=== PATIENT | female | born 1930 | race Caucasian/White ===

== ENCOUNTER 2017-05-20 21:34 | Emergency (ER) | payer OTHER ==
[~2017-05-20 21:34] MED LIST: ADALAT CC30 MG PO; AMLODIPINE BESYL5 M1 PO; AMLODIPINE5 M1 PO; ANT12.5 PO; APR20I PO; ASPI-COR81 M3 PO; ASPIR-LOW81 M1; CAT0.1 PO; CATAPRES0.1 MG PO; COR6 PO; COREG12.5 MG PO; COZ50 PO; HYDROCHLOROTHIA25 MG PO; LASIX20 MG PO; LEVAQUIN750 MG PO; LOSARTAN/HCTZ PO; MECLIZINE HYD12.5 MG PO; NIT0.4 SL; OMEPRAZOLE DR20 M1 PO; VOL50 PO; ZOC20 PO; ZOCOR40 MG PO
[2017-05-20 22:20] LABS: BASOPHIL % 0.8 % (0-2); PLATELET COUNT 182 x10^3mcL (130-400); RED CELL DISTRIBUTION WIDTH 13.6 % (11.5-14.5)
[2017-05-20 22:34] LABS: CARBON DIOXIDE 25.3 mmol/L (21-32); CHLORIDE SERUM 96 mmol/L (98-107); CREATININE SERUM 0.7 mg/dL (0.6-1.0); GLUCOSE SERUM 119 mg/dL (74-106); POTASSIUM SERUM 3.8 mmol/L (3.5-5.1); SODIUM SERUM 132 mmol/L (136-145)
[2017-05-20 22:46] LABS: ALBUMIN 3.9 g/dL (3.4-5.0); ALKALINE PHOSPHATASE 71 U/L (46-116); ALT/SGPT 57 U/L (14-59); AMYLASE 105 U/L (25-115); AST/SGOT 63 U/L (15-37); BILIRUBIN TOTAL 0.57 mg/dL (0.20-1.00); CHOLESTEROL 177 mg/dL (<200); HDL CHOLESTEROL 59 mg/dL (40-60); LIPASE 128 IU/L (73-393); MAGNESIUM 1.9 mg/dL (1.8-2.4); T4(THYROXINE) 10.8 ug/dL (4.7-13.3); TOTAL PROTEIN, SERUM 7.1 g/dL (6.4-8.2)
[2017-05-20 23:23] LABS: UA SPECIFIC GRAVITY <=1.005 (1.005-1.035); microscopic required? YES; urine erythrocyte NEGATIVE (NEGATIVE)
[2017-05-20 23:32] LABS: AMPHETAMINE QUAL UR NONE DETECTED (NEG <=1000)
[2017-05-21 00:21] VITALS: BP 140/90
== END 2017-05-21 00:21 | disposition home or self-care (01) ==
LOC: ED 21:34
PROVIDERS: Emergency Medicine
DX: R51 Headache (principal); I10 Essential (primary) hypertension; E78.00 Pure hypercholesterolemia, unspecified
CPT/HCPCS: 82962; 83880; J1940

== ENCOUNTER 2017-07-08 21:29 | Emergency (ER) | payer OTHER ==
[~2017-07-08] VITALS: Ht 157.5 cm; Wt 60.8 kg
[2017-07-08] MEDS ORDERED: OMEPRAZOLE40 M1 PO (22:29)
[2017-07-08] MEDS ORDERED: MECLIZINE HYDRO25 M1 PO (22:29)
[2017-07-08] MEDS ORDERED: AMLODIPINE BES2.5 M1 PO (22:30)
[2017-07-08] MEDS ORDERED: SIMVASTATIN20 M1 PO (22:30)
[2017-07-08 23:10] LABS: PLATELET COUNT 163 x10^3mcL (130-400); RED CELL DISTRIBUTION WIDTH 13.7 % (11.5-14.5)
[2017-07-08 23:11] LABS: BASOPHIL % 2.4 % (0-2)
[2017-07-08 23:17] LABS: CARBON DIOXIDE 27.5 mmol/L (21-32); CHLORIDE SERUM 99 mmol/L (98-107); CREATININE SERUM 0.6 mg/dL (0.6-1.0); GLUCOSE SERUM 106 mg/dL (74-106); POTASSIUM SERUM 3.5 mmol/L (3.5-5.1); SODIUM SERUM 136 mmol/L (136-145)
[2017-07-08 23:22] LABS: ALBUMIN 4.1 g/dL (3.4-5.0); ALKALINE PHOSPHATASE 62 U/L (46-116); ALT/SGPT 54 U/L (14-59); AST/SGOT 50 U/L (15-37); BILIRUBIN TOTAL 0.5 mg/dL (0.20-1.00); TOTAL PROTEIN, SERUM 7.8 g/dL (6.4-8.2)
[2017-07-09 00:51] VITALS: BP 135/76
== END 2017-07-09 00:51 | disposition home or self-care (01) ==
LOC: ED 21:29
PROVIDERS: Emergency Medicine
DX: H81.10 Benign paroxysmal vertigo, unspecified ear (principal); I10 Essential (primary) hypertension; K21.9 Gastro-esophageal reflux disease without esophagitis; E78.00 Pure hypercholesterolemia, unspecified; Z90.710 Acquired absence of both cervix and uterus
CPT/HCPCS: 83880; J1885; J3490; J8597

== ENCOUNTER 2017-07-12 08:40 | Emergency (ER) | payer OTHER ==
[~2017-07-12] VITALS: Ht 152.4 cm; Wt 59.9 kg
[~2017-07-12 08:40] MED LIST changes: +AMLODIPINE BES2.5 M1 PO; +MECLIZINE HYDRO25 M1 PO; +OMEPRAZOLE40 M1 PO; +SIMVASTATIN20 M1 PO
[2017-07-12 10:50] LABS: PLATELET COUNT 182 x10^3mcL (130-400); RED CELL DISTRIBUTION WIDTH 13.2 % (11.5-14.5)
[2017-07-12 10:57] LABS: BASOPHIL % 2.2 % (0-2)
[2017-07-12 11:04] LABS: AMYLASE 82 U/L (25-115); LIPASE 126 IU/L (73-393)
[2017-07-12 11:10] LABS: microscopic required? NO
[2017-07-12 11:27] LABS: urine erythrocyte NEGATIVE (NEGATIVE)
[2017-07-12 13:25] VITALS: BP 167/80
== END 2017-07-12 13:26 | disposition home or self-care (01) ==
LOC: ED 08:40
PROVIDERS: Emergency Medicine
DX: K57.90 Diverticulosis of intestine, part unspecified, without perforation or abscess without bleeding (principal); F41.9 Anxiety disorder, unspecified; I10 Essential (primary) hypertension; E78.00 Pure hypercholesterolemia, unspecified; Z90.49 Acquired absence of other specified parts of digestive tract; Z90.710 Acquired absence of both cervix and uterus
CPT/HCPCS: 36600; 83880

== ENCOUNTER 2018-05-03 12:37 | Emergency (ER) | payer OTHER, MEDICAID ==
[~2018-05-03] VITALS: Ht 152.4 cm; Wt 60.8 kg
[2018-05-03 12:52] VITALS: Ht 152.4 cm; Wt 60.8 kg
[2018-05-03 13:44] LABS: PLATELET COUNT 194 x10^3mcL (130-400); RED CELL DISTRIBUTION WIDTH 13.5 % (11.5-14.5)
[2018-05-03 13:45] LABS: BASOPHIL % 2.3 % (0-2)
[2018-05-03 13:49] LABS: microscopic required? YES; urine erythrocyte NEGATIVE (NEGATIVE)
[2018-05-03 13:58] LABS: CALCIUM 8.5 mg/dL (8.5-10.1); CARBON DIOXIDE 23.1 mmol/L (21-32); CHLORIDE SERUM 95 mmol/L (98-107); CREATININE SERUM 0.8 mg/dL (0.6-1.0); GLUCOSE SERUM 124 mg/dL (74-106); SODIUM SERUM 128 mmol/L (136-145)
[2018-05-03 14:03] LABS: ALKALINE PHOSPHATASE 79 U/L (46-116); ALT/SGPT 54 U/L (14-59); AST/SGOT 51 U/L (15-37); BILIRUBIN TOTAL 0.6 mg/dL (0.20-1.00); CHOLESTEROL 183 mg/dL (<200); MAGNESIUM 1.9 mg/dL (1.8-2.4); TOTAL PROTEIN, SERUM 7.1 g/dL (6.4-8.2)
[2018-05-03 14:04] LABS: HDL CHOLESTEROL 69 mg/dL (40-60)
[2018-05-03 15:23] VITALS: BP 167/74
== END 2018-05-03 15:18 | disposition home or self-care (01) ==
LOC: ED 12:37
PROVIDERS: Emergency Medicine
DX: R51 Headache (principal); R42 Dizziness and giddiness; I10 Essential (primary) hypertension; E78.00 Pure hypercholesterolemia, unspecified; Z90.710 Acquired absence of both cervix and uterus
CPT/HCPCS: 36415; 83880; J0696; Q0092

== ENCOUNTER 2018-05-05 13:28 | Emergency (ER) | payer OTHER, MEDICAID ==
[~2018-05-05] VITALS: Ht 147.3 cm; Wt 60.3 kg
[2018-05-05 13:31] VITALS: Ht 147.3 cm; Wt 60.3 kg
[2018-05-05 14:24] LABS: BASOPHIL % 0.4 % (0-2); PLATELET COUNT 194 x10^3mcL (130-400); RED CELL DISTRIBUTION WIDTH 13.4 % (11.5-14.5)
[2018-05-05 14:46] LABS: CALCIUM 8.6 mg/dL (8.5-10.1); CARBON DIOXIDE 23.5 mmol/L (21-32); CHLORIDE SERUM 96 mmol/L (98-107); CREATININE SERUM 0.8 mg/dL (0.6-1.0); GLUCOSE SERUM 98 mg/dL (74-106); SODIUM SERUM 131 mmol/L (136-145)
[2018-05-05 14:47] LABS: ALKALINE PHOSPHATASE 77 U/L (46-116); ALT/SGPT 65 U/L (14-59); AST/SGOT 77 U/L (15-37); BILIRUBIN TOTAL 0.6 mg/dL (0.20-1.00); TOTAL PROTEIN, SERUM 7.1 g/dL (6.4-8.2)
[2018-05-05 15:08] VITALS: BP 158/84
== END 2018-05-05 15:08 | disposition home or self-care (01) ==
LOC: ED 13:28
PROVIDERS: Emergency Medicine
DX: I16.0 Hypertensive urgency (principal); R42 Dizziness and giddiness; E78.00 Pure hypercholesterolemia, unspecified; Z90.710 Acquired absence of both cervix and uterus
CPT/HCPCS: 36415; 83880

== ENCOUNTER 2018-05-20 16:28 | Emergency (ER) | payer OTHER, MEDICAID ==
[~2018-05-20] VITALS: Ht 152.4 cm; Wt 61.2 kg
[2018-05-20 17:03] VITALS: Ht 152.4 cm; Wt 61.2 kg
[2018-05-20 20:51] LABS: PLATELET COUNT 200 x10^3mcL (130-400); RED CELL DISTRIBUTION WIDTH 13.5 % (11.5-14.5)
[2018-05-20 20:59] LABS: CALCIUM 8.9 mg/dL (8.5-10.1); CARBON DIOXIDE 25.1 mmol/L (21-32); CHLORIDE SERUM 93 mmol/L (98-107); CREATININE SERUM 0.6 mg/dL (0.6-1.0); GLUCOSE SERUM 107 mg/dL (74-106); POTASSIUM SERUM 4.1 mmol/L (3.5-5.1); SODIUM SERUM 128 mmol/L (136-145)
[2018-05-20 21:04] LABS: ALBUMIN 4.1 g/dL (3.4-5.0); ALKALINE PHOSPHATASE 77 U/L (46-116); ALT/SGPT 85 U/L (14-59); AST/SGOT 88 U/L (15-37); BILIRUBIN TOTAL 0.8 mg/dL (0.20-1.00); TOTAL PROTEIN, SERUM 7.3 g/dL (6.4-8.2)
[2018-05-20 21:30] LABS: microscopic required? YES; urine erythrocyte NEGATIVE (NEGATIVE)
[2018-05-20 21:39] VITALS: BP 133/74
== END 2018-05-20 21:39 | disposition home or self-care (01) ==
LOC: ED 16:28
PROVIDERS: Emergency Medicine
DX: G44.209 Tension-type headache, unspecified, not intractable (principal); I10 Essential (primary) hypertension; E78.00 Pure hypercholesterolemia, unspecified; E87.1 Hypo-osmolality and hyponatremia; Z90.710 Acquired absence of both cervix and uterus
CPT/HCPCS: 36415

== ENCOUNTER 2018-06-06 21:51 | Emergency (ER) | payer OTHER, MEDICAID ==
[~2018-06-06] VITALS: Ht 152.4 cm; Wt 61.0 kg
[2018-06-06 22:23] VITALS: Ht 152.4 cm; Wt 61.0 kg
[2018-06-07] VITALS: BP 180/94
== END 2018-06-07 | disposition home or self-care (01) ==
LOC: ED 21:51
DX: I10 Essential (primary) hypertension (principal); R42 Dizziness and giddiness; E78.00 Pure hypercholesterolemia, unspecified; Z90.710 Acquired absence of both cervix and uterus

== ENCOUNTER 2018-09-15 16:26 | Emergency (ER) | payer OTHER, MEDICAID ==
[~2018-09-15] VITALS: Ht 149.9 cm; Wt 60.3 kg
[2018-09-15 16:38] VITALS: BP 129/76
== END 2018-09-15 18:17 | disposition home or self-care (01) ==
LOC: ED 16:26
DX: K59.00 Constipation, unspecified (principal); K21.9 Gastro-esophageal reflux disease without esophagitis; I10 Essential (primary) hypertension; E78.00 Pure hypercholesterolemia, unspecified; Z90.710 Acquired absence of both cervix and uterus
CPT/HCPCS: Q0092

== ENCOUNTER 2019-05-13 23:40 | Inpatient (IN) | payer OTHER, MEDICAID ==
[~2019-05-13] VITALS: Ht 157.5 cm; Wt 57.2 kg
[~2019-05-13 23:40] MED LIST changes: -ASPI-COR81 M3 PO; +ASPIR 8181 MG PO
[2019-05-13 23:47] VITALS: Ht 157.5 cm; Wt 57.2 kg
[2019-05-14] VITALS (7 sets, daily range): BP systolic 135–163; BP diastolic 59–85
--- NOTE | 2019-05-14 00:12 | NUR ---
PATIENT WAS BROUGHT BACK FROM TRIAGE WITH COMPLAIN TOF DIZZINESS, REPORTS SEEN BY PMD ON THURSDAY AND DX VERTIGO.
[2019-05-14 00:22] LABS: BASOPHIL % 0.8 % (0-2); PLATELET COUNT 255 x10^3mcL (130-400); RED CELL DISTRIBUTION WIDTH 13.3 % (11.5-14.5)
[2019-05-14 00:38] LABS: ALBUMIN 3.8 g/dL (3.4-5.0); ALKALINE PHOSPHATASE 55 U/L (46-116); ALT/SGPT 47 U/L (14-59); AST/SGOT 41 U/L (15-37); BILIRUBIN TOTAL 0.6 mg/dL (0.20-1.00); CALCIUM 9.1 mg/dL (8.5-10.1); CARBON DIOXIDE 25.9 mmol/L (21-32); CHLORIDE SERUM 80 mmol/L (98-107); CREATININE SERUM 0.8 mg/dL (0.6-1.0); GLUCOSE SERUM 117 mg/dL (74-106); POTASSIUM SERUM 3.2 mmol/L (3.5-5.1); TOTAL PROTEIN, SERUM 6.6 g/dL (6.4-8.2)
[2019-05-14 00:41] LABS: SODIUM SERUM 119 mmol/L (136-145)
[2019-05-14] MEDS ORDERED: PRO30 PO (00:50)
[2019-05-14] MEDS ORDERED: HYDROCHLOROTH12.5 M2 PO (00:50)
[2019-05-14] MEDS ORDERED: PANTOPRAZOLE SO40 M1 (00:51)
[2019-05-14] MEDS ORDERED: TRAZODONE50 M1 PO (00:51)
[2019-05-14] MEDS ORDERED: LEXAPRO20 MG PO (00:51)
[2019-05-14] MEDS ORDERED: IBUPROFEN400 MG PO (00:52)
[2019-05-14] MEDS ORDERED: POT (00:53)
[2019-05-14] MEDS ORDERED: [UNRECOGNIZED DRUG - OTHER] (00:54)
--- NOTE | 2019-05-14 00:55 | NUR ---
SALINE LOCK INSERTED. FLUID ID INFUSING, PATIENT MEDICATED WITH REGLAN AND TORADOL.
--- NOTE | 2019-05-14 01:04 | NUR ---
PT MEDICATED PER ORDER. PT VERBALIZED UNDERSTANING OF MEDICATION TEACHING. SEE EMAR FOR DETAILS.
--- NOTE | 2019-05-14 01:34 | NUR ---
PT MEDICATED PER ORDER PT VERBALIZED UNDERSTANDING OF MEDICATION TEACH. SEE EMAR FOR DETAILS.
--- NOTE | 2019-05-14 01:53 | NUR ---
PATIENT AMBULATED TO THE BATHROOM , WALK WITH SINTERING PLANT SUPERVISOR.
--- NOTE | 2019-05-14 02:14 | NUR ---
ADMISSION ROOM OBTAIN, REPORT WAS GIVEN TO YAMILKA.
--- NOTE | 2019-05-14 02:34 | NUR ---
IV SITE IS INFILTRATED. SANE RESITED ON THE RIGHT FOREARM
--- NOTE | 2019-05-14 03:05 | NUR ---
PT RECEIVED FROM ED VIA GURNEY ACCOMPANIED BY ER NURSE, TECH, AND PT'S NIECE. PT A/O X 3-4, PT PROVIDED INCORRECT BIRTHDAY, ABLE TO MAKE NEEDS KNOWN, NO FACIAL DROOP NOTED. PT C/O 8/10 HEADACHE AND DIZZINESS, WILL MEDICATE WITH PRN PAIN MED. SEIZURE PRECAUTIONS IN PLACE FOR LOW NA. TELE #15, NSR, PT DENIES ANY CP/PRESSURE. PULSES PALPABLE, TRACE EDEMA TO BLE. BREATHING IS EVEN AND UNLABORED ON RA, LUNG SOUNDS CTA, NO RESP DISTRESS NOTED. ABD SOFT AND NONDISTENDED, DENIES N/V. VOIDS FREELY, PT MAY HAVE EPISODES OF URINARY INCONTINENCE. GENERALIZED WEAKNESS, PT ABLE TO REPOSITION INDEPENDENTLY. PT IS AMBULATORY AT BASEL[facility]; PER PT'S NIECE-QUINTON, THEY RECENTLY HAD TO ORDER A CANE AND FWW FOR HER. SKIN IS WARM AND DRY, INTACT. ORIENTED PT TO ROOM AND CALL LIGHT. BED IN LOWEST SETTING, SIDE RAILS UP X2, CALL LIGHT WITHIN REACH. WILL CONT TO MONITOR.
--- NOTE | 2019-05-14 03:12 | NUR ---
PT TRANSFERRED TO TELE FLOOR BY NURSE AND EMT. NO S/S OF DISTRESS. RESP E/U. PT CONNECTED TO MONITOR DURING TRANSFER. RN AT BEDSIDE TO ASSUME CARE OF PT. IV SITE PATENT. RN AWARE OF MEDICATIONS STILL TRANSFUSING.
--- NOTE | 2019-05-14 04:08 | NUR ---
PT C/O 06/04 HEADACHE, PRN TYLENOL GIVEN ORDERED. NO ACUTE DISTRESS NOTED. CALL LIGHT WITHIN REACH. WILL CONT TO MONITOR.
--- NOTE | 2019-05-14 06:23 | NUR ---
RECEIVED CALL FROM DR DE LUNA AND UPDATED DR REGARDING PT'S STATUS. PER DR DE LUNA, STOP 3% NS INFUSION FROM ED AT THIS TIME. PT SL TO RFA, PATENT AND INTACT, SITE WNL. ORDERS RECEIVED. WILL UPDATE WITH LAB RESULTS.
--- NOTE | 2019-05-14 07:04 | NUR ---
RECEIVED REPORT FROM YAMILKA LAGOS. PATIENT RESTING COMFORTABLY IN BED WITH SEIZURE PRECAUTIONS IN PLACE. SALINE LOCK TO RFA IS PATENT AND INTACT. NO REDNESS OR PAIN. PT ON ROOM AIR. NO C/O SOB AND NO DISTRESS NOTED. PT C/O HEADACHE 5/10 BUT DECLINES PAIN MEDICATION FOR NOW. TELE # [address] PATIENT DENIES CHEST PAIN. ALL QUESTIONS AND CONCERNS ADDRESSED.
--- NOTE | 2019-05-14 07:05 | NUR ---
CALLED LAB FOR PT'S LAB DRAW, PER ADHESIVE BANDAGE MAKING OPERATOR, "SOMEONE IS ALREADY ON THE WAY." WILL AWAIT RESULTS.
--- NOTE | 2019-05-14 07:32 | NUR ---
PT SLEPT AT INTERVALS THROUGHOUT THE EVENING. SEIZURE PRECAUTIONS MAINTAINED. BREATHING IS EVEN AND UNLABORED, NO RESP DISTRESS NOTED. PT DENIES HAVING ANY PAIN AT THIS TIME. SL TO RFA, PATENT AND INTACT, SITE WNL. NO ACUTE CHANGES ENCOUNTERED DURING SHIFT. ALL NEEDS MET AND ANTICIPATED. PT WAS COMPLIANT WITH NURSING CARE. CALL LIGHT WITHIN REACH. CONTINUITY OF CARE ENDORSED TO LOIS RN. ALL QUESTIONS AND CONCERNS ADDRESSED.
[2019-05-14 07:39] LABS: OSMOLALITY SERUM 250 mOsm/kg (278-298)
[2019-05-14 07:53] LABS: CALCIUM 9.2 mg/dL (8.5-10.1); CARBON DIOXIDE 26.4 mmol/L (21-32); CHLORIDE SERUM 87 mmol/L (98-107); CREATININE SERUM 0.7 mg/dL (0.6-1.0); GLUCOSE SERUM 110 mg/dL (74-106); POTASSIUM SERUM 4.1 mmol/L (3.5-5.1)
[2019-05-14 07:55] LABS: SODIUM SERUM 124 mmol/L (136-145)
--- NOTE | 2019-05-14 08:03 | NUR ---
SPOKE WITH DR DE LUNA TO NOTIFY OF 0700 BMP NA 124, K 4.1, SERUM OSMOL 250. DR DE LUNA ORDERED REGULAR DIET TODAY OLNY WITH ADDED ENSURE, HOLD FLUIDS FOR NOW AND CALL BACK WITH 1000 LABS AND URINE OSMOL RESULTS.
--- NOTE | 2019-05-14 08:43 | NUR ---
MARIAM IN TO SEE PATIENT AND DISCUSS PLAN OF CAR. DR INSTRUCTED TO DRINK WATER BUT NOT IN EXCESS AND INFORMED THAT WE WILL BE MONITORING HER LABS. ALSO DISCUSSED AMBULATION AND ASSISTIVE DEVICES AND PT EVAL.
--- NOTE | 2019-05-14 08:57 | NUR ---
PHYYSICAL THERAPY IN TO SEE AND ASSESS PATIENT.
[2019-05-14 10:22] LABS: CALCIUM 8.6 mg/dL (8.5-10.1); CARBON DIOXIDE 23.9 mmol/L (21-32); CHLORIDE SERUM 89 mmol/L (98-107); CREATININE SERUM 0.7 mg/dL (0.6-1.0); GLUCOSE SERUM 99 mg/dL (74-106); POTASSIUM SERUM 3.8 mmol/L (3.5-5.1)
[2019-05-14 10:25] LABS: SODIUM SERUM 122 mmol/L (136-145)
--- NOTE | 2019-05-14 10:35 | NUR ---
NOTIFIED DR DE LUNA OF [address] LABS [address] DE LUNA ORDERED NS 500ML @ 100 ML/HR. FREE WATER, COFFEE AND TEA RESTRICTION OF 800 ML/DAY, AND 1G SALT TAB X1 @ 1200.
[2019-05-14 14:11] LABS: CALCIUM 8.3 mg/dL (8.5-10.1); CARBON DIOXIDE 25.9 mmol/L (21-32); CHLORIDE SERUM 91 mmol/L (98-107); CREATININE SERUM 0.7 mg/dL (0.6-1.0); GLUCOSE SERUM 144 mg/dL (74-106); POTASSIUM SERUM 3.7 mmol/L (3.5-5.1); SODIUM SERUM 126 mmol/L (136-145)
--- NOTE | 2019-05-14 14:48 | NUR ---
NOTIFIED DR DE LUNA OF NA 126. DR ORDERED TO CONTINUE CURRENT TREATMENT. DISCUSSED THAT PT IS OK TO HAVE SMALL AMOUNTS OF FAMILY PURCHASED GATORADE. DR DE LUNA TO ARRIVE SHORTLY AND STILL WANTS TO BE NOTIFIED OF 18:00 LABS.
--- NOTE | 2019-05-14 15:44 | NUR ---
PER DR DE LUNA, HOLD PO KCL UNTIL NEXT BMP. CALL HIM AND CONSULT FOR ADMINISTRATION DEPENDING ON RESULTS.
--- NOTE | 2019-05-14 16:12 | NUR ---
CALLED PHARMACY TO REQUEST 1 HOUR EXTENSION TO WAIT FOR 18:00 LAB RESULTS. PHARMACY OK.
--- NOTE | 2019-05-14 17:31 | NUR ---
IN TO RECHECK PT BP AFTER IV HYDARLAZINE. BP IS 146/77 MEDICATION EFFECTIVE.
--- NOTE | 2019-05-14 18:49 | NUR ---
IN TO SEE PATIENT AND REASSESS PAIN. PT REPORTS PAIN IS GONE. PT IS RESTING COMFORTABLY IN BED. ALL NEEDS MET. IV TO RFA IS PATENT AND INTACT. NO REDNESS OT PAIN. TELE # [address] PT DENIES CHEST PAIN. PT ON ROOM AIR. NO C/O SOB AND NO DISTRESS NOTED. WILL ENDORSE ALL CARE TO ONCOMING NURSE.
[2019-05-14 20:19] LABS: CALCIUM 8.8 mg/dL (8.5-10.1); CARBON DIOXIDE 27.1 mmol/L (21-32); CHLORIDE SERUM 92 mmol/L (98-107); CREATININE SERUM 0.6 mg/dL (0.6-1.0); GLUCOSE SERUM 95 mg/dL (74-106); POTASSIUM SERUM 3.9 mmol/L (3.5-5.1); SODIUM SERUM 128 mmol/L (136-145)
[2019-05-14 22:27] LABS: CALCIUM 8.8 mg/dL (8.5-10.1); CARBON DIOXIDE 27.3 mmol/L (21-32); CHLORIDE SERUM 93 mmol/L (98-107); CREATININE SERUM 0.6 mg/dL (0.6-1.0); GLUCOSE SERUM 103 mg/dL (74-106); POTASSIUM SERUM 3.8 mmol/L (3.5-5.1); SODIUM SERUM 128 mmol/L (136-145)
--- NOTE | 2019-05-15 00:17 | NUR ---
PT IS RESTING IN BED WITH EYES CLOSED AT THIS TIME. NO ACUTE DISTRESS NOTED. PT HAS NO COMPLAINT OF PAIN AT THIS TIME. PT HAS BEEN ALERT AND ORIENTED X3, CALM AND COOPERATIVE WITH CARE, SAFETY AND COMFORT MEASURES MAINTAINED, BED IN LOWEST POSITION, CALL LIGHT WITHIN REACH. WILL CONTINUE TO MONITOR AT THIS TIME.
[2019-05-15 02:56] LABS: CALCIUM 9.2 mg/dL (8.5-10.1); CARBON DIOXIDE 26.4 mmol/L (21-32); CHLORIDE SERUM 95 mmol/L (98-107); CREATININE SERUM 0.7 mg/dL (0.6-1.0); GLUCOSE SERUM 89 mg/dL (74-106); POTASSIUM SERUM 3.9 mmol/L (3.5-5.1); SODIUM SERUM 130 mmol/L (136-145)
--- NOTE | 2019-05-15 05:23 | NUR ---
PT HAS RESTED IN LONG INTERVALS THROUGHOUT THE SHIFT. PT HAS BEEN CALM AND COOPERATIVE WITH CARE. PT IS ALERT AND ORIENTED X4, IV IS SALINE LOCKED AND INTACT AT THIS TIME. NO COMPLAINT OF PAIN AT THIS TIME. SAFETY AND COMFORT MEASURES MAINTAINED, BED IN LOWEST POSITION, CALL LIGHT WITHIN REACH. WILL ENDORSE CONTINUITY OF CARE TO THE ONCOMING RN.
[2019-05-15 06:26] VITALS: BP 167/72
[2019-05-15 07:13] LABS: CALCIUM 9.1 mg/dL (8.5-10.1); CARBON DIOXIDE 27.8 mmol/L (21-32); CHLORIDE SERUM 94 mmol/L (98-107); CREATININE SERUM 0.7 mg/dL (0.6-1.0); GLUCOSE SERUM 95 mg/dL (74-106); POTASSIUM SERUM 3.7 mmol/L (3.5-5.1); SODIUM SERUM 131 mmol/L (136-145)
--- NOTE | 2019-05-15 07:15 | NUR ---
RECIEVED PT SITTING UP IN BED. NO C/O PAIN, DISTRESS, OR SOB. A/O X3-4, NO MEYER OR DIZZINESS. TELE #15 CONNECTED TO PT. NO CP OR PRESSURE NOTED. PT ON STRICT FLUID RESTRICTION OF 1 LITER DAILY, NO INTAKE ON NOC SHIFT. SALINE LOCK TO RFA INTACT AND PATENT WITH NO REDNESS OR INFLAMMATION. SAFETY PRECAUTIONS IN PLACE, CALL LIGHT WITHIN REACH, WILL MONITOR.
--- NOTE | 2019-05-15 07:15 | NUR ---
RECIEVED PT SITTING UP IN CHAIR EATING BREAKFAST. NO C/O PAIN, DISTRESS, OR SOB. A/O X3-4, NO MEYER OR DIZZINESS. TELE #15 CONNECTED TO PT. NO CP OR PRESSURE NOTED. PT ON STRICT FLUID RESTRICTION OF 1 LITER DAILY, NO INTAKE ON NOC SHIFT. SALINE LOCK TO RFA INTACT AND PATENT WITH NO REDNESS OR INFLAMMATION. SAFETY PRECAUTIONS IN PLACE, CALL LIGHT WITHIN REACH, WILL MONITOR.
[2019-05-15 07:45] LABS: BASOPHIL % 0.5 % (0-2); PLATELET COUNT 237 x10^3mcL (130-400); RED CELL DISTRIBUTION WIDTH 13.7 % (11.5-14.5)
[2019-05-15 08:06] LABS: ALBUMIN 3.5 g/dL (3.4-5.0); ALKALINE PHOSPHATASE 43 U/L (46-116); ALT/SGPT 44 U/L (14-59); AST/SGOT 33 U/L (15-37); BILIRUBIN TOTAL 0.6 mg/dL (0.20-1.00); CALCIUM 9.2 mg/dL (8.5-10.1); CARBON DIOXIDE 28.9 mmol/L (21-32); CHLORIDE SERUM 94 mmol/L (98-107); CREATININE SERUM 0.7 mg/dL (0.6-1.0); GLUCOSE SERUM 91 mg/dL (74-106); SODIUM SERUM 131 mmol/L (136-145); TOTAL PROTEIN, SERUM 6.2 g/dL (6.4-8.2)
--- NOTE | 2019-05-15 08:40 | NUR ---
DR BECERRA AT BEDSIDE WITH PT AND FAMILY MEMBER. OK TO DISCHARGE TODAY PER DR BECERRA ONLY IF CLEARED BY NEPHROLOGY. POC DISCUSSED WITH PT AND FAMILY BY DR BECERRA, PT/FAMILY VERBALIZE UNDERSTANDING. FAMILY STATES PT WILL NOT HAVE A RIDE HOME UNTIL AFTER 5PM. CHARGE NOTIFIED. WILL MONITOR.
[2019-05-15 09:08] VITALS: BP 144/65
[2019-05-15 13:39] VITALS: BP 144/65
[2019-05-15 14:03] VITALS: BP 166/75
[2019-05-15 14:09] VITALS: BP 166/75
--- NOTE | 2019-05-15 14:21 | NUR ---
HYDRALAZINE PRN GIVEN TO PT FOR SBP >160 (166/75). WILL REASSESS.
--- NOTE | 2019-05-15 16:37 | NUR ---
SPOKE WITH DR DE LUNA, PT OK TO DISCHARGE TODAY AND PT IS TO STOP HYDROCHOROTHIAZIDE. NOTIFIED PT GRANDSON AT [phone]. CHARGE AWARE.
--- NOTE | 2019-05-15 17:52 | NUR ---
PT STABLE TO DISCHARGE PER MD ORDER. ALL DISCHARGE EDUCATION AND INSTRUCTIONS EXPLAINED TO PT AND GRANDSON APOORVA. ALL FORMS SIGNED. PT AND GRANDSON VERBALIZE UNDERSTANDING. ALSO VERBALIZE UNDERSTANDING TO STOP HYROCHLOROTHIAZIDE AND F/U WITH PCP. IV REMOVED WITH CATHETER INTACT, NO REDNESS OR INFLAMMATION NOTED. VS WNL, NO DISTRESS, PAIN, OR SOB NOTED. PT ESCORTED DOWN VIA WC TO LOBBY WITH ESE BRYSON AND GRANDSON. ALL BELONGINGS IN HAND.
== END 2019-05-15 18:04 | disposition home or self-care (01) | DRG 643 ==
LOC: ED 23:40 → DU 05-14 01:38
PROVIDERS: Emergency Medicine; Internal Medicine; Internal Medicine Pulmonary Disease; ADMIT Internal Medicine Pulmonary Disease
DX: E22.2 Syndrome of inappropriate secretion of antidiuretic hormone (principal); G93.41 Metabolic encephalopathy; E83.42 Hypomagnesemia; E87.6 Hypokalemia; I10 Essential (primary) hypertension; K21.9 Gastro-esophageal reflux disease without esophagitis; F32.9 Major depressive disorder, single episode, unspecified; Z68.23 Body mass index [BMI] 23.0-23.9, adult
CPT/HCPCS: 83880; 97116-GP; G0378; J0360; J1885; J2765; J3475; J7030; J7040

== ENCOUNTER 2019-05-21 09:04 | Observation (INO) | payer OTHER, MEDICAID ==
[~2019-05-21] VITALS: Ht 157.5 cm; Wt 55.4 kg
[~2019-05-21 09:04] MED LIST changes: +HYDROCHLOROTH12.5 M2 PO; +IBUPROFEN400 MG PO; +LEXAPRO20 MG PO; +PANTOPRAZOLE SO40 M1; +POT; +PRO30 PO; +TRAZODONE50 M1 PO; +[UNRECOGNIZED DRUG - OTHER]
[2019-05-21 09:10] VITALS: Ht 157.5 cm; Wt 55.4 kg
--- NOTE | 2019-05-21 09:10 | NUR ---
PT BIBA FROM HOME FOR BEING "ALTERED". PT YELLING AND BEING COMBATIVE WITH FAMILY AND REFUSING MEDICATIONS FOR THE PAST TWO DAYS SAYING THAT THEY ARE POISONING HER. PTS GRANDDAUGHTER AT BESIDE TRANSLATING FOR PT. PER GRANDDAUGHTER, PT RECENTLY DC'D ON DEPRESSION MEDS WHEN HOSPITALIZED AT [facility] [place] LAST WEEK. PT IS ABLE TO IDENTIFY WHERE SHE IS AND WHO IS WITH HER BUT CAN NOT IDENTIFY DAY OF THE WEEK, YEAR OR PRESIDENT. PER GRANDDAUGHTER SHE HAS NOT BEEN ABLE TO IDENTIFY THOSE THINGS IN A LONG TIME. PT CONTINUES TO YELL IN [place] CALLING OUT HER FAMILY MEMBERS. PT RESPS E/U; CHANGED INTO GOWN.
--- NOTE | 2019-05-21 09:18 | NUR ---
PER GRANDDAUGTHER, PT HAS NOT EATEN OR DRANK ANYTHING IN THE PAST TWO DAYS.
--- NOTE | 2019-05-21 09:30 | NUR ---
ATTEMPTED TO REDUCE STIMULI, RE-ORIENT PT TO UNIT, PROVIDE ALL COMFORT NEEDS, FAMILY AT BEDSIDE. PT REMAINS ATTEMPTING TO PULL OUT IV AND WIRES CONNECTED FOR MONITORING. SOFT WRIST RESTRAINT PLACED TO L WRIST. FAMILY SIGNED CONSENT VERBALIZING UNDERSTANDING; PLACED HARD COPY IN CHART.
[2019-05-21 09:53] LABS: BASOPHIL % 0.4 % (0-2); PLATELET COUNT 293 x10^3mcL (130-400); RED CELL DISTRIBUTION WIDTH 13.4 % (11.5-14.5)
--- NOTE | 2019-05-21 09:56 | NUR ---
PT CONTINUES TO YELL FOR YANET. PT FAMILY AT BEDSIDE WITH PT. AWAITING MSE
[2019-05-21 10:07] LABS: CALCIUM 9.7 mg/dL (8.5-10.1); CARBON DIOXIDE 25.8 mmol/L (21-32); CHLORIDE SERUM 93 mmol/L (98-107); CREATININE SERUM 1.1 mg/dL (0.6-1.0); GLUCOSE SERUM 119 mg/dL (74-106); POTASSIUM SERUM 3.5 mmol/L (3.5-5.1); SODIUM SERUM 133 mmol/L (136-145)
[2019-05-21 10:11] LABS: ALBUMIN 4.2 g/dL (3.4-5.0); ALKALINE PHOSPHATASE 44 U/L (46-116); ALT/SGPT 50 U/L (14-59); AST/SGOT 37 U/L (15-37); BILIRUBIN TOTAL 0.8 mg/dL (0.20-1.00); CHOLESTEROL 190 mg/dL (<200); TOTAL PROTEIN, SERUM 7.4 g/dL (6.4-8.2)
[2019-05-21 10:12] LABS: microscopic required? NO
[2019-05-21 10:21] LABS: UA SPECIFIC GRAVITY 1.015 (1.005-1.035); urine erythrocyte NEGATIVE (NEGATIVE)
[2019-05-21 10:42] LABS: AMPHETAMINE QUAL UR NONE DETECTED (See below)
--- NOTE | 2019-05-21 10:57 | NUR ---
RETURNED FROM CT WITHOUT INCIDENCE. CONNECTED TO FULL WEAVER APPRENTICE; KATIE REMAINS AT BEDSIDE
--- NOTE | 2019-05-21 11:46 | NUR ---
INFORMED THAT PT FAMILY IS WANTING TO KNOW PLAN OF CARE FOR PT AT THIS TIME; PT IS NOW SLEEPING ON GURNEY IN POSITION OF COMFORT.
--- NOTE | 2019-05-21 12:04 | NUR ---
PT FAMILY EDUCATED ON MEDICATION PER EMAR, VERBALIZED UNDERSTANDING. MEDICATED AND TOLERATED WELL.
--- NOTE | 2019-05-21 12:33 | NUR ---
L WRIST RESTRAINT REMOVED. PT IS SLEEPING IN POSITION OF COMFORT WITH FAMILY MEMBER AT BEDSIDE
--- NOTE | 2019-05-21 13:06 | NUR ---
REPORT GIVEN TO DEMOND BOWERS
--- NOTE | 2019-05-21 13:11 | NUR ---
PT IN [facility] WITH EYES CLOSED, RESP E/U. FEMALE VISITOR AT BEDSIDE. PT REMAINS CONNECTED TO FULL CM.
--- NOTE | 2019-05-21 13:59 | NUR ---
PT VOIDED, CHANGED GOWN, BED SHEET, PROVIDED PERICARE. NO DISTRESS.
--- NOTE | 2019-05-21 14:44 | NUR ---
RESIDENT AT BEDSIDE TO SPEAK WITH FAMILY MEMBER. PT RESP E/U, WITH EYES CLOSED. REMAINS CONNECTED TO FULL CM.
--- NOTE | 2019-05-21 15:37 | NUR ---
REPORT GIVEN TO DEMOND MEJIA TO ASSUME CARE.
[2019-05-21 16:10] VITALS: BP 169/94
--- NOTE | 2019-05-21 16:16 | NUR ---
RECEIVED PT FROM ED VIA JANNA. ORIENTED PT TO ROOM AND SURROUNDINGS. IV NOTED TO RAC PATENT AND INTACT .TELE 24 PLACED ON PT READING SR. INSTRUCTED PT AND FAMILY ON THE USE OF CALL LIGHT FOR ASSISTANCE. ENDORSED PT TO PRIMARY DEBBIE ERWIN
--- NOTE | 2019-05-21 17:35 | NUR ---
PT RESTING IN BED, AOX3, RESP E/U ON RA. APPEARED DROWSY BUT ABLE TO VERBALIZE NEEDS, STATED SHE NEEDED TO USE RESTROOM. ASSISTED PT W/ URINAL, CALM AND COMLPIANT W/ CARE. NO ACUTE DISTRESS NOTED AT THIS TIME. SALINE LOCK TO RAC W/ NO ERYHTEMA OR EDEMA, IV TO LFA W/ NO SIGNS OF INFILTRATION, IVF INFUSING WELL. BED IN LOWEST POSITION AND CALL LIGHT WITHIN REACH. FAMILY MEMBER AT BEDSIDE. WILL ENDORSE TO ONCOMING NURSE.
--- NOTE | 2019-05-21 19:52 | NUR ---
RECEIVED PT FROM PREVIOUS SHIFT. DROWSY BUT AROUSABLE. ABLE TO MAKE NEEDS KNOWN. TELE #24 SHOWING NSR. BREATHING E/U ON RA. NO S/S ACUTE DISTRESS. IVF INFUSING WELL, NO ERYTHEMA OR EDEMA. CALL LIGHT WITHIN REACH. SAFETY MEASURES IN PLACE. FAMILY AT BEDSIDE. WILL CONTINUE TO MONITOR.
[2019-05-21 20:42] VITALS: BP 158/74
--- NOTE | 2019-05-21 21:24 | NUR ---
PT TOLERATED MEDICATION ADMINSTRATION WELL. ABLE TO FOLLOW COMMANDS. NO SWALLOWING DIFFICULTY NOTED. HOB ELEVATED. WILL CONTINUE TO MONITOR.
--- NOTE | 2019-05-21 23:46 | NUR ---
PT ASSISTED ONTO BED SPARKS. VOIDED CLEAR YELLOW URINE. DENIES PAIN. NO S/S ACUTE DISTRESS. BREATHING E/U. CALM AND COOPERATIVE WITH CARE. WILL CONTINUE TO MONITOR.
[2019-05-22 04:30] VITALS: BP 163/69
--- NOTE | 2019-05-22 06:23 | NUR ---
PT HAD RESTFUL NIGHT. NO S/S ACUTE DISTRESS. BREATHING E/U. DENIES PAIN. NO N/V. PT C/O SOME THROAT DISCOMFORT. NO CHANGES OVERNIGHT. ALL NEEDS MET AND ATTENDED TO. IV SITE CDI, IVF INFUSING WELL, NO ERYTHEMA OR EDEMA. CALL LIGHT WITHIN REACH. SAFETY MEASURES IN PLACE. WILL ENDORSE CARE TO ONCOMING SHIFT.
[2019-05-22 06:39] LABS: CARBON DIOXIDE 24.6 mmol/L (21-32); CHLORIDE SERUM 101 mmol/L (98-107); CREATININE SERUM 0.8 mg/dL (0.6-1.0); GLUCOSE SERUM 91 mg/dL (74-106); MAGNESIUM 1.5 mg/dL (1.8-2.4); POTASSIUM SERUM 3.3 mmol/L (3.5-5.1); SODIUM SERUM 137 mmol/L (136-145)
[2019-05-22 06:42] LABS: BASOPHIL % 0.6 % (0-2); PLATELET COUNT 213 x10^3mcL (130-400); RED CELL DISTRIBUTION WIDTH 13.4 % (11.5-14.5)
[2019-05-22 07:03] LABS: T3 TOTAL 0.92 ng/mL
--- NOTE | 2019-05-22 07:05 | NUR ---
RECEIVED PT FROM PROFESSIONAL DRIVER. PT IN BED SLEEPING, AROUSABLE, RESP E/U ON RA. NO ACUTE DISTRESS NOTED AT THIS TIME. IV TO RAC AND LFA W/ NO ERYTHEMA OR EDEMA, IVF INFUSING WELL TO LFA. BED IN LOWEST POSITION AND CALL LIGHT WITHIN REACH. WILL CONTINUE TO MONITOR.
[2019-05-22 08:03] LABS: FREE T4 1.45 ng/dL (0.76-1.46); FREE THYROXINE INDEX 4.3 ug/dL (1.4-4.5); T4(THYROXINE) 11.5 ug/dL (4.7-13.3)
--- NOTE | 2019-05-22 08:13 | NUR ---
CALLED DR. SPAULDING FOR AM LAB RESULT K: 3.3, M.5. MED ORDERS PLACED PER TELEPHONE READBACK.
[2019-05-22 08:29] VITALS: BP 176/74
--- NOTE | 2019-05-22 11:36 | NUR ---
PT C/O BACK PAIN RATED 7/10. MEDICATED ORDERED PER EMAR. COMFORT MEASURES IMPLEMENTED. BED IN LOWEST POSITION AND CALL LIGHT WITHIN REACH. WILL CONTINUE TO MONITOR.
--- NOTE | 2019-05-22 12:45 | NUR ---
PT RESTING IN BED, AOX3, RESP E/U ON RA. PT DENIES PAIN, CALM AND COMPLIANT W/ CARE AT THIS TIME. NO ACUTE DISTRESS NOTED. FAMILY MEMBER AT BEDSIDE ASSISTING PT W/ LUNCH. BED IN LOWEST POSITION AND CALL LIGHT WITHIN REACH. WILL CONTINUE TO MONITOR.
[2019-05-22 13:19] VITALS: BP 134/72
[2019-05-22 15:57] VITALS: BP 131/71
--- NOTE | 2019-05-22 16:40 | NUR ---
PT DISCHARGED. REVIEWED VISIT SUMMARY AND EDUCATIONAL PACKET W/ PT AND FAMILY. TP AOX3, RESP E/U ON RA, VS STABLE, DENIES PAIN AT THIS TIME. IV TO RAC AND LFA REMOVED, CATH INTACT, GAUZE DRESSING APPLIED. PT BROUGHT TO LOBBY VIA WHEELCHAIR, ESCORTED BY DEMOND GRACIA AND PT FAMILY W/ NO ACUTE INCIDENCE.
== END 2019-05-22 16:38 | disposition home or self-care (01) | DRG 947 ==
LOC: ED 09:04 → DU 13:16
PROVIDERS: Specialist; ADMIT Internal Medicine Pulmonary Disease
DX: R41.0 Disorientation, unspecified (principal); G93.41 Metabolic encephalopathy; I10 Essential (primary) hypertension; F32.9 Major depressive disorder, single episode, unspecified; F41.8 Other specified anxiety disorders
CPT/HCPCS: 84439; G0378; G0480; J1630; J2060; J3475; J7030; J7042; Q0092